=== PATIENT | female | born 1960 | race Caucasian/White ===

== ENCOUNTER → 2017-05-31 | Outpatient (CLI) | payer OTHER, BC ==
[~2017-05-31] MED LIST: GADOBUTROL 10 MMOL/10 ML VIAL IV ONE; GLIM1TAB2 PO; INSU100V13 SQ; LEVO50TA5 PO; LIRA0.6P2 SQ; LISI1TAB5 PO; METF100010 PO; PROP20TA PO; SIMV40TA3 PO
--- NOTE | 2017-05-31 14:33 | KCIC ---
EXAM: MRI pelvis with and without contrast. HISTORY: Left gluteal mass. History of endometrial cancer. TECHNIQUE: MRI of the pelvis and left gluteal region was performed before and after intravenous administration of 9 mL Gadavist. COMPARISON: Report only, CT, May 19, 2017. FINDINGS: There is an oval T2 hyperintense mass along the most anterior aspect of the left gluteus medius minimus muscle. It measures 4.0 cm craniocaudally and 2.3 cm short axis. It demonstrates slow progressive enhancement across the postcontrast series. Somewhat linear regions of T2 hyperintensity inferior and superior to it suggest small feeding vessels or associated vascular malformation. There is no surrounding muscular edema. There is a tear of the left anterior acetabular labrum. There is only minimally decreased femoral head/neck offset anteriorly. There is no acetabular retroversion. Joint spaces are maintained. There is no joint effusion. There is mild left hamstring bursitis and tendinopathy. The right hamstring origin appears normal. There is no significant greater trochanteric bursitis. There is no bone marrow edema or suspicious osseous lesion. Limited images of the right hip demonstrate high signal in the anterior acetabular labrum suggesting a nondisplaced tear. There is no paralabral cyst. Joint spaces appear preserved. There is no joint effusion. Limited images of the pelvic organs reveal changes of hysterectomy. No enlarged lymph nodes or ascites are seen. A small left inguinal hernia contains only fat. IMPRESSION: 1. 4.0 x 2.3 cm enhancing T2 hyperintense mass along the anterior periphery of the left gluteus minimus muscle. Its characteristics suggest a intramuscular hemangioma. Neurogenic tumors such as schwannomas, or muscular masses such as myxomas are additional possibilities. Benignity is favored. Correlate for associated symptoms to further exclude primary or secondary malignancy. Percutaneous biopsy or 3-6 month MR follow-up could be considered if there is persistent concern. 2. Nondisplaced tear of the left anterior acetabular labrum. A right anterior acetabular labral tear is also suspected. 3. Small left inguinal hernia containing only fat. Electronically signed by: Kelly Stroud MD (05/31/2017 2:30 PM) [id number]
== END | disposition home or self-care (01) ==
LOC: KCIC MRI 11:23
PROVIDERS: ATTEND Family Medicine
DX: K40.90 Unilateral inguinal hernia, without obstruction or gangrene, not specified as recurrent (principal); L02.31 Cutaneous abscess of buttock; Z85.89 Personal history of malignant neoplasm of other organs and systems
CPT/HCPCS: 72197; A9585

== ENCOUNTER → 2017-10-30 | Outpatient (CLI) | payer OTHER, BC ==
--- NOTE | 2017-10-30 15:25 | KCIC ---
MRI pelvis with and without contrast dated 10/30/2017. Comparison made to May 31, 2017. Clinical indication: Follow-up pelvic mass. TECHNIQUE: Routine multiplanar multisequence MR imaging of pelvis performed with and without the administration of 9 cc Gadavist. FINDINGS: Again noted is a well-defined T2 hyperintense mass within the anterior aspect of the gluteus minimus muscle that measures 2.4 x 2.6 x 4.2 cm. Using the same planes, on the prior exam, the lesion measured 2.3 x 2.5 x 4.3 cm. Lesion is isointense to hypointense to muscle on T1 and shows mild central enhancement. There is abutment of the anterior lateral margin of the left iliac bone, without associated periostitis or cortical destruction. No significant surrounding edema within the gluteal musculature. The lesion abuts the fascial margin of the tensor fascia juan and rectus femoris origin. No additional soft tissue lesions. No additional areas of abnormal enhancement. Marrow signal is homogeneous. No marrow edema or periostitis. Mild hypertrophic change of the bilateral hip joint. Irregular appearance of the left hip labrum is similar to prior exam, consistent with degenerative tearing. No para labral cyst or joint effusion. Gluteus minimus and gluteus medius tendons are intact. Proximal hamstring tendon complex intact. Iliopsoas is intact. Small left inguinal hernia containing only fat, unchanged. IMPRESSION: 1. No significant interval change in cystic soft tissue mass of the proximal gluteus minimus muscle on the left. This is likely benign. Please see prior report for differential diagnosis 2. Mild degenerative change at the left hip joint with tearing of the left hip labrum, unchanged. 3. No new or acute findings. Electronically signed by: Simone Nogueira MD (10/30/2017 3:21 PM) [id number]
== END | disposition home or self-care (01) ==
LOC: KCIC MRI 09:06
PROVIDERS: ATTEND Family Medicine
DX: K40.90 Unilateral inguinal hernia, without obstruction or gangrene, not specified as recurrent (principal)
CPT/HCPCS: 72197; 82565; A9585